=== PATIENT | female | born 1940 | race Caucasian/White ===

== ENCOUNTER 2024-02-04 21:42 | Inpatient (IN) | payer BC ==
[~2024-02-04] VITALS: Ht 165.1 cm; Wt 61.2 kg
[2024-02-04] MEDS ORDERED: NITR100C11 PO (21:53)
[2024-02-04] MEDS ORDERED: ATOR10TA PO (21:53)
[2024-02-04] MEDS ORDERED: CEPH250C PO (21:53)
[2024-02-04] MEDS ORDERED: LOSA25TA27 PO (21:53)
[2024-02-04] MEDS ORDERED: METO-356 PO (21:53)
[2024-02-04] MEDS ORDERED: NITROGLYCERIN OINT 1 GM PACKET TP ONE (22:30)
[2024-02-04] MEDS ORDERED: ONDANSETRON 4 MG/2 ML VIAL ONE (22:30)
[2024-02-04 22:36] LABS: *BILIRUBIN,URIN NEGATIVE (NEGATIVE); *BLOOD, URINE 2+ (NEGATIVE); *CLARITY,URINE CLEAR (CLEAR); *COLOR,URINE YELLOW (YELLOW); *KETONES,URINE 1+ (NEGATIVE); *PROTEIN,URINE 2+ (NEGATIVE); *UROBILINOGEN,URINE 0.2 E.U./dl (NORMAL); LEUKOCYTE ESTERASE ,URINE TRACE (NEGATIVE); NITRITE, URINE NEGATIVE (NEGATIVE); PH,URINE 5.5 (5.0-8.0); UGLUCOSE NEGATIVE (NEGATIVE)
[2024-02-04] MEDS: ONDANSETRON 4 MG/2 ML VIAL IV ONE (22:36)
[2024-02-04] MEDS: NITROGLYCERIN OINT 1 GM PACKET TP ONE (22:36)
[2024-02-04 22:42] LABS: ALANINE AMINOTRANSFERASE 22 U/L (14-59); ALBUMIN 2.7 g/dL (3.4-5.0); ALKALINE PHOSPHATASE 58 U/L (50-136); ASPARTATE AMINOTRANSFERASE 18 U/L (15-37); BILIRUBIN,DIRECT 0.1 mg/dL (0.0-0.2); BILIRUBIN,TOTAL 0.6 mg/dL (0.2-1.0); CALCIUM 8.1 mg/dL (8.5-10.1); CARBON DIOXIDE 26 mmol/L (21-32); CHLORIDE 105 mmol/L (98-107); CREATININE 0.6 mg/dL (0.6-1.3); GLUCOSE 134 mg/dL (74-106); NT-PRO BNP 292 pg/mL (0-125); POTASSIUM 3.8 mmol/L (3.5-5.1); SODIUM SERUM 141 mmol/L (136-145); TOTAL PROTEIN, SERUM 6.1 g/dL (6.4-8.2); UREA NITROGEN, BLOOD 21 mg/dL (7-18)
[2024-02-04 22:58] LABS: BACTERIA,URINE FEW /HPF (NONE SEEN); SQUAMOUS EPITHELIAL CELL,UR FEW /HPF (NONE SEEN)
[2024-02-04 22:59] LABS: CALCIUM OXALATE CRYSTALS,UR FEW /HPF (NONE SEEN); MUCUS,URINE MODERATE /LPF (0-FEW)
[2024-02-04] MEDS ORDERED: CEFTRIAXONE /D5W 50ML IVPB **ER PYXIS IV ONE (23:11)
[2024-02-04] MEDS: CEFTRIAXONE 1 G in IV DEXTROSE 5% 50 ML IV ONE (23:16)
[2024-02-04 23:26] LABS: BASOPHILS # (AUTO) 0.5 K/UL (0.0-0.2); EOSINOPHILS # (AUTO) 0.1 K/uL (0.0-0.7); EOSINOPHILS % (AUTO) 0.8 % (0.0-7.0); HEMATOCRIT 31.7 % (31.2-41.9); HEMOGLOBIN 10.5 g/dL (10.9-14.3); LYMPHOCYTES # (AUTO) 0.3 K/uL (0.8-4.8); LYMPHOCYTES % (AUTO) 3.2 % (20.5-51.5); MEAN CORPUSCULAR HGB CONC 33 g/dL (32.3-35.6); MEAN CORPUSCULAR VOLUME 90.6 fL (75.5-95.3); MONOCYTES # (AUTO) 0.3 K/uL (0.1-1.30); MONOCYTES % (AUTO) 3.9 % (0.0-11.0); NEUTROPHILS # (AUTO) 7.8 K/uL (1.8-8.9); NEUTROPHILS % (AUTO) 87.1 % (38.5-71.5); PLATELET COUNT (AUTO) 287 K/uL (179-408); RED CELL DISTRIBUTION WIDTH 14.8 % (12.3-17.7)
[2024-02-05] VITALS (7 sets, daily range): BP systolic 117–139; BP diastolic 50–62; TEMP 98.1–99.7; O2SAT 95–99
[2024-02-05] MEDS ORDERED: PANTOPRAZOLE SODIUM 40 MG VIAL ONE (00:19)
[2024-02-05] MEDS ORDERED: DICYCLOMINE HCL LIQ 10 MG/5 ML UDC ONE (00:20)
[2024-02-05] MEDS ORDERED: LIDOCAINE VISCUS 2% 15 ML UDC ONE (00:20)
[2024-02-05] MEDS ORDERED: MAG HYDROX/AL HYDROX/SIMETH 30 ML LIQUID UDC ONE (00:21)
[2024-02-05] MEDS: LIDOCAINE VISCUS 2% 15 ML UDC MM ONE (00:23)
[2024-02-05] MEDS: PANTOPRAZOLE SODIUM IV 40 MG in IV DEXTROSE 5% 100 ML IV ONE (00:23)
[2024-02-05] MEDS: DICYCLOMINE HCL LIQ 10 MG/5 ML UDC PO ONE (00:23)
[2024-02-05] MEDS: MAG HYDROX/AL HYDROX/SIMETH 30 ML LIQUID UDC PO ONE (00:23)
[2024-02-05] MEDS ORDERED: MAGNESIUM HYDROXIDE 30 ML LIQUID UDC PO PRN (01:15)
[2024-02-05] MEDS ORDERED: REMEDY ESSENTIAL ZINC PASTE 113 GM TP PRN (01:15)
[2024-02-05] MEDS ORDERED: NITROGLYCERIN 0.4 MG/TAB BOTTLE SL PRN ×2 (01:15→05:46)
[2024-02-05] MEDS ORDERED: HYDROCODONE/APAP 5-325MG TABLET PO PRN (01:15)
[2024-02-05] MEDS: ONDANSETRON 4 MG/2 ML VIAL IV PRN (02:37)
[2024-02-05] MEDS ORDERED: diphenhydrAMINE 50 MG/1 ML VIAL IV PRN (03:00)
[2024-02-05] MEDS: METOCLOPRAMIDE HCL 10 MG/2 ML VIAL IV STA (03:10)
[2024-02-05] MEDS: IV NS 1000 ML 1,000 ML IV ONE (03:11)
[2024-02-05] MEDS: diphenhydrAMINE 50 MG/1 ML VIAL IV STA (03:18)
[2024-02-05] MEDS: PANTOPRAZOLE SODIUM 40 MG TABLET.DR PO SCH (06:14)
[2024-02-05] MEDS ORDERED: ONDANSETRON 4 MG/2 ML VIAL IV PRN (06:45)
[2024-02-05] MEDS: ASPIRIN 81 MG TAB.CHEW PO SCH (09:00)
[2024-02-05] MEDS ORDERED: ASPI-1420 PO (10:44)
[2024-02-05] MEDS ORDERED: METOCLOPRAMIDE HCL 10 MG/2 ML VIAL IV PRN (12:30)
[2024-02-05] MEDS ORDERED: IOHEXOL-240 MG , 50 ML VIAL IV ONE (15:47)
[2024-02-05] MEDS ORDERED: BUPIVACAINE PF 0.5% 30 ML VIAL ONE (15:47)
[2024-02-05] MEDS ORDERED: LIDOCAINE HCL 1% 20 ML VIAL ONE (15:47)
[2024-02-05] MEDS ORDERED: HEPARIN/NS 500 ML ONE (16:33)
[2024-02-05] MEDS ORDERED: FENTANYL CITRATE 100 MCG/2 ML AMPUL ONE (17:10)
[2024-02-05] MEDS ORDERED: MIDAZOLAM HCL 2 MG/2 ML VIAL ONE (17:11)
[2024-02-05] MEDS: ACETAMINOPHEN 325 MG TABLET PO PRN (20:51)
[2024-02-05] MEDS: TEMAZEPAM 15 MG CAPSULE PO PRN (22:36)
[2024-02-05] MEDS: CEFTRIAXONE 1 G in IV DEXTROSE 5% 50 ML IV SCH (22:36)
[2024-02-06 00:11] VITALS: BP 102/55; TEMP 99.2; O2SAT 95
[2024-02-06 00:25] VITALS: O2SAT 97
[2024-02-06 04:37] VITALS: BP 123/66; TEMP 98.3; O2SAT 97
[2024-02-06 06:22] LABS: BASOPHILS % (AUTO) 0.4 % (0.0-2.0); EOSINOPHILS # (AUTO) 0.1 K/uL (0.0-0.7); EOSINOPHILS % (AUTO) 1.6 % (0.0-7.0); HEMATOCRIT 28.1 % (31.2-41.9); HEMOGLOBIN 9.7 g/dL (10.9-14.3); LYMPHOCYTES # (AUTO) 0.9 K/uL (0.8-4.8); LYMPHOCYTES % (AUTO) 22.1 % (20.5-51.5); MEAN CORPUSCULAR HGB CONC 34 g/dL (32.3-35.6); MONOCYTES # (AUTO) 0.5 K/uL (0.1-1.30); MONOCYTES % (AUTO) 12.4 % (0.0-11.0); NEUTROPHILS # (AUTO) 2.7 K/uL (1.8-8.9); NEUTROPHILS % (AUTO) 63.5 % (38.5-71.5); PLATELET COUNT (AUTO) 262 K/uL (179-408); RED BLOOD CELL COUNT(AUTO) 3.13 MIL/uL (3.63-4.92); WHITE BLOOD COUNT (AUTO) 4.2 K/uL (3.8-11.8)
[2024-02-06 06:36] LABS: CALCIUM 7.6 mg/dL (8.5-10.1); CARBON DIOXIDE 29 mmol/L (21-32); CHLORIDE 110 mmol/L (98-107); CREATININE 0.5 mg/dL (0.6-1.3); GLUCOSE 93 mg/dL (74-106); MAGNESIUM 2.2 mg/dL (1.8-2.4); POTASSIUM 3.7 mmol/L (3.5-5.1); SODIUM SERUM 143 mmol/L (136-145); UREA NITROGEN, BLOOD 10 mg/dL (7-18)
[2024-02-06 06:41] LABS: THYROID STIMULATING HORMONE 0.472 mIU/mL (0.358-3.740)
[2024-02-06 06:57] LABS: CHOLESTEROL 121 mg/dL (<200); HDL CHOLESTEROL 48 mg/dL (40-60); TRIGLYCERIDES 93 MG/DL (30-150)
[2024-02-06 08:00] VITALS: BP 123/53; TEMP 97.8; O2SAT 93
[2024-02-06 12:00] VITALS: BP 123/57; TEMP 98.3; O2SAT 98
== END 2024-02-06 13:35 | disposition home or self-care (01) | DRG 244 ==
LOC: ER 21:42 → TELE3 02-05 01:12
PROVIDERS: ADMIT Nurse Practitioner Acute Care
PROC: 0JH606Z Insertion of Pacemaker, Dual Chamber into Chest Subcutaneous Tissue and Fascia, Open Approach (ICD-10-PCS; principal; 2024-02-05)
PROC: 02H63JZ Insertion of Pacemaker Lead into Right Atrium, Percutaneous Approach (ICD-10-PCS; 2024-02-05)
PROC: 02HK3JZ Insertion of Pacemaker Lead into Right Ventricle, Percutaneous Approach (ICD-10-PCS; 2024-02-05)
DX: I49.5 Sick sinus syndrome (principal); N32.89 Other specified disorders of bladder; Y84.2 Radiological procedure and radiotherapy as the cause of abnormal reaction of the patient, or of later complication, without mention of misadventure at the time of the procedure; Y78.1 Therapeutic (nonsurgical) and rehabilitative radiological devices associated with adverse incidents; K43.9 Ventral hernia without obstruction or gangrene; I25.10 Atherosclerotic heart disease of native coronary artery without angina pectoris; I89.0 Lymphedema, not elsewhere classified; E78.5 Hyperlipidemia, unspecified; Z85.51 Personal history of malignant neoplasm of bladder; Z93.50 Unspecified cystostomy status; Z96.652 Presence of left artificial knee joint; Z85.42 Personal history of malignant neoplasm of other parts of uterus; Z90.710 Acquired absence of both cervix and uterus; Z95.5 Presence of coronary angioplasty implant and graft; Z88.0 Allergy status to penicillin; Z87.891 Personal history of nicotine dependence; Z79.2 Long term (current) use of antibiotics; Z79.899 Other long term (current) drug therapy
CPT/HCPCS: 36415; 71045; 76700; 83735; 84100; 84443; 84484; 85025; 93005; 93307; A4565; A4649; A4663; C1785; G0378; J0696; J1200; J1644; J2250; J2405; J2470; J2765; J3010; J3490; J7040; Q9966